=== PATIENT | male | born 1985 | race Caucasian/White ===

== ENCOUNTER 2021-09-02 20:57 | Emergency (ER) | payer BC ==
[~2021-09-02] VITALS: Ht 187 cm; Wt 110.0 kg
[~2021-09-02 20:57] MED LIST: ACHD5005 PO; AMOX500C2 PO; ANTIDEPRESSANT PO; CODE118S2 PO; CPR500T PO; CYCL10TA9 PO; DOXY100C2 PO; FAMO20TA5 PO; HYDR-3583 PO; IBP800T PO; ISOM1CAP11 PO; META800T5 PO; METH4TAB PO; NAPR-243 PO; ONDAN4ODT SL; PRD20T PO; PRD50T PO; TRAM50TA2 PO; TRIA60LO6 TOP; TRM50T PO
[2021-09-02 21:57] VITALS: BP 161/92
[2021-09-02] MEDS ORDERED: CLINDAMYCIN 150 MG (CLEOCIN) CAP PO STA (22:08)
[2021-09-02] MEDS ORDERED: CLIN-144 PO (22:11)
--- NOTE | 2021-09-02 22:12 | ED Integumentary General ---
General Chief Complaint: Skin/Wound Problems Stated Complaint: SORES ON SKIN Source: patient Exam Limitations: no limitations (GERONIMO CHANG) History of Present Illness Date Seen by Provider: Sep 02, 2021 Time Seen by Provider: 22:09 Initial Comments Patient is a 35-year-old male who presents ED with a rash. Rash started 2 weeks ago with 2 lesions to his left posterior shoulder. Those lesions have improved. Start developing red bumps on his upper arms. Patient states a few of the lesions had blisters with some mild purulent drainage. Patient states he has been itching the rash making it worse. Similar type rash several years ago on his legs that resolved. Has been applying topical Neosporin with some improvement. States he has been outside but cannot recall any foreign body that he may have touched. Concerned that he may have been bitten by a spider or mosquito initially. Patient noted few of the lesions had surrounding redness and warmth. Noted some induration and swelling. Denies fever, chills, nausea, vomiting, diarrhea. (GERONIMO CHANG) Allergies and Home Medications Allergies Uncoded Allergies: PLASTIC TAPE (Adverse Reaction, Mild, RASH, 05/01/11) Patient Home Medication List Home Medication List Reviewed: Yes (GERONIMO CHANG) Clindamycin HCl (Clindamycin HCl) 300 Mg Capsule, 300 MG PO QID Prescribed by: ANGUS LOVELL on 09/02/212210 Cyclobenzaprine Hcl (Cyclobenzaprine Hcl) 10 Mg Tablet, 1 EACH PO Q8H PRN for SPASMS Prescribed by: DYLON OCHOA on 10/04/13 154 Famotidine (Pepcid) 20 Mg Tablet, 1 EACH PO BID Prescribed by: REKHA VERDUGO on 10/05/13 192 Prednisone (Prednisone) 20 Mg Tab, 40 MG PO DAILY Prescribed by: DYLON OCHOA on 10/04/13 154 Tramadol Hcl (Tramadol Hcl) 50 Mg Tablet, 50 MG PO Q4H PRN for PAIN Prescribed by: DYLON OCHOA on 10/04/13 154 Review of Systems Review of Systems Constitutional: No chills, No diaphoresis, No malaise, No weakness EENTM: No blurred vision, No double vision Respiratory: No cough, No dyspnea on exertion, No phlegm, No short of breath Cardiovascular: No chest pain, No edema Gastrointestinal: No abdominal pain, No diarrhea, No dysphagia, No nausea, No vomiting Genitourinary: No decreased output, No discharge Musculoskeletal: No back pain, No joint pain Skin: rash Psychiatric/Neurological: Denies Anxiety, Denies Depressed (GERONIMO CHANG) All Other Systems Reviewed Negative Unless Noted: Yes (GERONIMO CHANG) Past Jhowetv-[id number]-Hbdfvm Hx Past Medical History Asthma Reproductive Disorders: No Sexually Transmitted Disease: No HIV/AIDS: No Gastroesophageal Reflux, Esophagitis Back Injury, Scoliosis (GERONIMO CHANG) Family Medical History Diabetes (GERONIMO CHANG) Physical Exam Vital Signs Vital Signs - First Documented 09/02/21 21:57 Pulse 83 Resp 18 B/P (MAP) 161/92 (115) Pulse Ox 96 O2 Delivery Room Air (IGLESIA,VENTURA [employer] DO) Vital Signs Capillary Refill : (GERONIMO CHANG) General Appearance: WD/WN, no apparent distress HEENT: PERRL/EOMI, normal ENT inspection, TMs normal, pharynx normal Neck: non-tender, full range of motion, supple Cardiovascular: regular rate, rhythm, no edema, no gallop, no JVD Respiratory: chest non-tender, lungs clear, normal breath sounds, no respiratory distress, no accessory muscle use Gastrointestinal: normal bowel sounds, non tender, soft Back: normal inspection, no CVA tenderness Extremities: no calf tenderness Neurologic/Psychiatric: no motor/sensory deficits, alert, normal mood/affect, oriented x 3 Skin: other (Several erythematous papules noted to the upper extremities bilateral with surrounding induration and mild swelling with erythema. No fluctuant mass.) (GERONIMO CHANG) Progress/Results/Core Measures Results/Orders Vital Signs/I&O 09/02/21 21:57 Pulse 83 Resp 18 B/P (MAP) 161/92 (115) Pulse Ox 96 O2 Delivery Room Air (IGLESIA,VENTURA K DO) Departure Communication (PCP) Patient with erythematous papules noted to the upper extremities bilateral. No fluctuant mass. Surrounding redness and swelling with some induration. Concerning for staph infection secondary to the presentation and exam. No fluctuant mass. Mild drainage from a few lesions. This appears to be infectious etiology. Denies history of MRSA. will treat for infectious etiology with clindamycin. Patient was given a dose here. Avoid scratching which may had resulted in the spread of the rash. Neosporin topical twice a day. If any worsening symptoms return back to ED for further evaluation. (GERONIMO CHANG) Impression Primary Impression: Rash Disposition: HOME, SELF-CARE Condition: Stable Departure-Patient Inst. Decision time for Depature: 22:10 (GERONIMO CHANG) Referrals: [facility],LOCAL PHYSICIAN (PCP) Primary Care Physician Patient Instructions: Cellulitis (Skin Infection), Adult (DC) Scripts Clindamycin HCl (Clindamycin HCl) 300 Mg Capsule 300 MG PO QID for 7 Days, #28 CAP Prov: GERONIMO CHANG 09/02/21 Work/School Note: Work Release Form Date Seen in the Emergency Department: Sep 02, 2021 Return to Work: Sep 04, 2021 ATTENDING PHYSICIAN NOTE: I WAS PHYSICALLY PRESENT ER PHYSICIAN, BUT I WAS NOT INVOLVED IN ANY DECISION MAKING OR ANY CARE OF THIS PATIENT. (VENTURA PAREKH DO) GERONIMO CHANG Sep 02, 2021 22:11 VENTURA PAREKH DO Sep 04, 2021 19:59
== END 2021-09-02 22:32 | disposition home or self-care (01) ==
LOC: EDUNIT# 20:57 → ER 21:01
DX: R21 Rash and other nonspecific skin eruption (principal)
CPT/HCPCS: 99283